=== PATIENT | male | born 1970 | race Caucasian/White ===

== ENCOUNTER → 2021-01-31 | Outpatient (CLI) | payer BC ==
--- NOTE | 2021-02-01 07:34 | US ---
EXAMINATION TYPE: US scrotum with doppler. Grayscale and color Doppler Duplex imaging performed of t he scrotum. DATE OF EXAM: 01/31/2021 COMPARISON: NONE CLINICAL HISTORY: N50.9 RT SIDED MASS, NODULE. Pt states feeling palpable lump right testicle EXAM MEASUREMENTS: TESTICLES: Right Testicle: 3.5 x 2.1 x 3.8 cm cm Left Testicle: 4.3 x 2.1 x 3.1 cm cm EPIDIDYMIS HEAD: Right Epididymis: Epididymal cyst right epi head= 1.8 x 1.0 x 1.9 cm with septation Left Epididymis: 1.2 cm Doppler performed to assess for testicular vascularity; good bilateral color flow and waveforms are s een. There is no evidence of testicular torsion. Presence of hydroceles: No Presence of varicoceles: No Right epi head cyst IMPRESSION: 1. Large septated cyst right epididymis.
== END | disposition home or self-care (01) ==
LOC: RADUSWWP 15:34
PROVIDERS: ATTEND Internal Medicine
DX: N50.3 Cyst of epididymis (principal)
CPT/HCPCS: 76870; 93975